=== PATIENT | female | born 1960 | race Caucasian/White ===

== ENCOUNTER 2016-11-24 09:38 | Emergency (ER) | payer BC, OTHER ==
[2016-11-24 09:46] VITALS: BP 156/87; PULSE 81; RESP 18; TEMP 98.2
[2016-11-24] MEDS ORDERED: DIPH,PERTUS(ACELL)TETVAC-LF 0.5 ML VIAL IM ONE (10:39)
--- NOTE | 2016-11-24 10:40 | ED ---
General Adult HPI - General Chief complaint: Wound/Laceration Stated complaint: LACERATION LEFT INDEX FINGER Time Seen by Provider: 11/24/16 10:06 Source: patient, family, RN notes reviewed Mode of arrival: ambulatory Limitations: no limitations - History of Present Illness Initial comments: 56-year-old female presenting for left hand laceration. Patient states she was grabbing a picture frame that was old and got cut on a piece of glass on the corner of the frame. She states it was a puncture wound to the meaty area between her thumb and first digit on the left hand. She is right handed. She states she has had some persistent bleeding. This occurred about an hour ago. She does not know when her last tetanus shot was. She denies any other injury. She denies any broken glass or foreign body. - Related Data Home Medications Medication Instructions Recorded Confirmed ALPRAZolam [Alprazolam] 0.25 mg PO BID PRN 11/24/16 11/24/16 Aspirin 81 mg PO DAILY 11/24/16 11/24/16 Levothyroxine Sodium [Synthroid] 75 mcg PO DAILY 11/24/16 11/24/16 Pravastatin Sodium [Pravastatin 20 mg PO DAILY 11/24/16 11/24/16 Sodium] Allergies Allergy/AdvReac Type Severity Reaction Status Date / Time Penicillins Allergy Anaphylaxis Verified 11/24/16 10:44 citris fruit Allergy Rash/Hives Uncoded 11/24/16 10:44 Review of Systems ROS Statement: Those systems with pertinent positive or pertinent negative responses have been documented in the HPI. ROS Other: All systems not noted in ROS Statement are negative. Past Medical History Past Medical History: Thyroid Disorder Additional Past Medical History / Comment(s): heart murmer, leaky heart valve. History of Any Multi-Drug Resistant Organisms: None Reported Past Surgical History: No Surgical Hx Reported Past Psychological History: No Psychological Hx Reported Smoking Status: Never smoker Past Alcohol Use History: None Reported Past Drug Use History: None Reported General Exam - General Exam Comments Initial Comments: General: Awake and Alert. No acute distress. Does not appear acutely ill. Eyes: JORDAN. No scleral icterus. HENT: Atraumatic, normocephalic. Mucous membranes moist. Trachea midline. Neck: The neck is supple, there is no JVD. Cardiovascular: Regular rate and rhythm. Distal pulses intact. Respiratory: No wheezing. No respiratory distress. Normal respiratory rate. Gastrointestinal: No distention. Musculoskeletal: Left hand with full range of motion of all digits passive and active. No evidence of tendon or muscle rupture. No tenderness. Normal ROM. No gross deformity. No strength deficits. Neurological: A&Ox3. There are no obvious motor or sensory deficits. Coordination appears grossly intact. Speech is normal. Skin: Skin is warm and dry. Left hand with 2 cm laceration between the thumb and first digit. No evidence of foreign body. Psychiatric: Cooperative, appropriate mood & affect, normal judgment. Limitations: no limitations Course Vital Signs 11/24/16 09:44 Temperature 98.2 F Pulse Rate 81 Respiratory 18 Rate Blood Pressure 156/87 O2 Sat by Pulse 98 Oximetry Procedures - Laceration Laceration #1 Consent Obtained: verbal consent Time Out Performed: Yes Indication: laceration Site: hand Size (cm): 2 Description: linear (with puncture) Depth: simple, single layer (involving subQ fat) Anesthetic Used: lidocaine 1% Anesthesia Technique: local infiltration Amount (mls): 4 Pre-repair: wound explored, irrigated extensively Type of Sutures: nylon, vicryl Size of Sutures: 4-0 Number of Sutures: 5 (1 figure of eight in underyling fatty tissue for wound approximation) Technique: simple, interrupted Patient Tolerated Procedure: well, no complications Medical Decision Making - Medical Decision Making 56-year-old female presenting for left hand laceration. There does not appear to be any foreign body on exam. 2 cm laceration with puncture into the underlying fatty tissue. There does not appear to be any tendon damage or weakness associated. Fingers neurovascularly intact. Laceration was repaired after local anesthetic. Patient tolerated this well. Discussed wound care. Tetanus is updated today. Sutures out in one week. Discussed follow-up with PCP or return to the [facility] for removal of sutures. Discussed concerning signs symptoms for immediate return to the ED. Patient is agreeable with plan and discharge home. Disposition Clinical Impression: Laceration of left hand Disposition: HOME SELF-CARE Condition: Stable Instructions: Laceration (ED) Additional Instructions: Please follow up in 1 week to have stitches removed. Referrals: Yelitza English MD [Primary Care Provider] - 1-2 days Time of Disposition: 10:47
== END 2016-11-24 11:13 | disposition home or self-care (01) ==
LOC: EC 09:38
DX: S61.412A Laceration without foreign body of left hand, initial encounter (principal); E07.9 Disorder of thyroid, unspecified; Z23 Encounter for immunization; Z79.82 Long term (current) use of aspirin; Z79.899 Other long term (current) drug therapy; Z88.0 Allergy status to penicillin; Z91.018 Allergy to other foods; W25.XXXA Contact with sharp glass, initial encounter; Y93.89 Activity, other specified
CPT/HCPCS: 12001; 90471; 90715; 99282

== ENCOUNTER → 2018-02-28 | Outpatient (CLI) | payer MEDICAID ==
--- NOTE | 2018-02-28 14:44 | XR ---
EXAMINATION TYPE: XR chest 2V DATE OF EXAM: 02/28/2018 COMPARISON: 12/22/2010 HISTORY: Cough since November TECHNIQUE: Frontal and lateral views of the chest are obtained. FINDINGS: There is no focal air space opacity, pleural effusion, or pneumothorax seen. The cardiac silhouette size is within normal limits. The osseous structures are intact. Cholecystectomy clips a re seen within the right upper quadrant. Mild multilevel degenerative changes of the thoracic spine a nd acromioclavicular joints are noted. IMPRESSION: No acute cardiopulmonary process.
== END | disposition home or self-care (01) ==
LOC: RADXRMAIN 10:42
PROVIDERS: ATTEND Internal Medicine
DX: R05 Cough (principal)
CPT/HCPCS: 71046

== ENCOUNTER → 2018-03-27 | Outpatient (CLI) | payer MEDICAID, OTHER ==
--- NOTE | 2018-03-28 13:57 | MM ---
Reason for exam: screening (asymptomatic). Last mammogram was performed 2 years and 1 month ago. History: Patient is postmenopausal. Took estrogen for 10 years beginning at age 41. Physical Findings: A clinical breast exam by your physician is recommended on an annual basis and results should be correlated with mammographic findings. MG 3D Screening Mammo W/Cad Bilateral CC and MLO view(s) were taken. Prior study comparison: March 10, 2016, bilateral MG screening mammo w CAD. January 31, 2015, bilateral MG screening mammo w CAD. There are scattered fibroglandular densities. No significant changes when compared with prior studies. ASSESSMENT: Negative, BI-RAD 1 RECOMMENDATION: Routine screening mammogram of both breasts in 1 year.
== END | disposition home or self-care (01) ==
LOC: RADMAMWWP 14:02
PROVIDERS: ATTEND Internal Medicine
DX: Z12.31 Encounter for screening mammogram for malignant neoplasm of breast (principal)
CPT/HCPCS: 77063; 77067

== ENCOUNTER → 2018-04-14 | Outpatient (CLI) | payer MEDICAID ==
--- NOTE | 2018-04-14 11:54 | ECHOF ---
Referral Reason:Aortic Valve Disorder I35.8 MEASUREMENTS -------- HEIGHT: 167.6 cm WEIGHT: 87.5 kg BP: RVIDd: 2.9 cm (< 3.3) IVSd: 1.6 cm (0.6 - 1.1) LVIDd: 3.6 cm (3.9 - 5.3) LVPWd: 1.3 cm (0.6 - 1.1) IVSs: 1.8 cm LVIDs: 2.3 cm LVPWs: 1.7 cm LAESV Index (A-L): 17.91 ml/m Ao Diam: 2.5 cm (2.0 - 3.7) AV Cusp: 1.6 cm (1.5 - 2.6) LA Diam: 3.2 cm (2.7 - 3.8) EPSS: 0.3 cm MV E Scot: 0.87 m/s MV DecT: 145 ms MV A Scot: 0.59 m/s MV E/A Ratio: 1.49 AV maxP.67 mmHg AV meanP.80 mmHg AR PHT: 400 ms RAP: 5.00 mmHg RVSP: 29.34 mmHg MV EF SLOPE: 58.43 mm/s (70 - 150) MV EXCURSION: 1.30 cm (> 18.000) FINDINGS -------- Sinus rhythm. This was a technically good study. There is moderate concentric left ventricular hypertrophy. Overall left ventricular systolic functi on is normal with, an EF between 55 - 60 %. The right ventricle is normal in size and function. Normal LA size by volume 22+/-6 ml/m2. The right atrium is normal in size. Aortic valve is trileaflet and is mildly thickened. There is mild aortic regurgitation. There is mild aortic stenosis present. Peak/mean gradient across the Aortic Valve is 18.67mmHg / 10.80mmHg. The mitral valve leaflets are mildly thickened. Moderate mitral regurgitation is present. Mild tricuspid regurgitation present. The right ventricular systolic pressure, as measured by Doppl er, is 29.34mmHg. Moderate pulmonic regurgitation. The aortic root size is normal. Normal inferior vena cava with normal inspiratory collapse consistent with estimated right atrial pre ssure of 5 mmHg. The pericardium is normal. CONCLUSIONS -------- 1. Sinus rhythm. 2. This was a technically good study. 3. There is moderate concentric left ventricular hypertrophy. 4. Overall left ventricular systolic function is normal with, an EF between 55 - 60 %. 5. The right ventricle is normal in size and function. 6. Normal LA size by volume 22+/-6 ml/m2. 7. The right atrium is normal in size. 8. Aortic valve is trileaflet and is mildly thickened. 9. There is mild aortic regurgitation. 10. There is mild aortic stenosis present. 11. Peak/mean gradient across the Aortic Valve is 18.67mmHg / 10.80mmHg. 12. The mitral valve leaflets are mildly thickened. 13. Moderate mitral regurgitation is present. 14. Mild tricuspid regurgitation present. 15. The right ventricular systolic pressure, as measured by Doppler, is 29.34mmHg. 16. Moderate pulmonic regurgitation. 17. The aortic root size is normal. 18. Normal inferior vena cava with normal inspiratory collapse consistent with estimated right atrial pressure of 5 mmHg. 19. The pericardium is normal. TRUST MAIL CLERK: Mayuri Brooks RDCS
== END | disposition home or self-care (01) ==
LOC: RADECHMAIN 08:34
PROVIDERS: ATTEND Internal Medicine Interventional Cardiology
DX: I08.3 Combined rheumatic disorders of mitral, aortic and tricuspid valves (principal)
CPT/HCPCS: 93306

== ENCOUNTER → 2019-05-07 | Outpatient (CLI) | payer MEDICAID ==
--- NOTE | 2019-05-09 10:24 | MM ---
Reason for exam: screening (asymptomatic). Last mammogram was performed 1 year and 1 month ago. History: Patient is postmenopausal. Took estrogen for 10 years beginning at age 41. Physical Findings: A clinical breast exam by your physician is recommended on an annual basis and results should be correlated with mammographic findings. MG 3D Screening Mammo W/Cad Bilateral CC and MLO view(s) were taken. Prior study comparison: March 27, 2018, bilateral MG 3d screening mammo w/cad. March 10, 2016, bilateral MG screening mammo w CAD. There are scattered fibroglandular densities. No significant changes when compared with prior studies. ASSESSMENT: Benign, BI-RAD 2 RECOMMENDATION: Routine screening mammogram of both breasts in 1 year.
== END | disposition home or self-care (01) ==
LOC: RADMAMWWP 13:50
PROVIDERS: ATTEND Internal Medicine
DX: Z12.31 Encounter for screening mammogram for malignant neoplasm of breast (principal)
CPT/HCPCS: 77063; 77067

== ENCOUNTER → 2019-07-25 | Outpatient (CLI) | payer MEDICAID ==
--- NOTE | 2019-07-25 11:20 | MR ---
EXAMINATION TYPE: MR lumbar spine wo con DATE OF EXAM: 07/25/2019 COMPARISON: None HISTORY: Leg cramp TECHNIQUE: Multiplanar, multisequence images of the lumbar spine were acquired. T12-L1 shows bilateral extension of T2 bright focus posterior to the thecal sac into the foramina. L1-L2: Normal disc appearance without desiccation. No herniation, protrusion or disc bulging. No ca nal stenosis is present. Foramina are patent bilaterally. L2-L3: Normal disc appearance without desiccation. The T2 bright focus posterior to the thecal sac ca uses posterior mass effect and extends towards the right neural foramen at L1-2. No herniation, protr usion or disc bulging. No canal stenosis is present. Foramina are patent bilaterally. L3-L4: There is some facet arthropathy with hypertrophy ligamentum flavum causing posterior lateral m ass effect on the thecal sac. No evident disc herniation or central stenosis, neural foraminal encroa chment. L4-L5: There is facet arthropathy with hypertrophy ligamentum flavum causing posterior lateral mass e ffect on the thecal sac. This causes a trefoil appearance of the thecal sac, there is no evident disc herniation. Listhesis contributes cause foraminal encroachment right greater than left. No definite spondylolysis. Only mild central stenosis. L5-S1: Minimal posterior disc bulge may contact the anterior thecal sac, proximal S1 nerve roots. The re is some mild facet arthropathy change. No significant spinal stenosis or foraminal encroachment. Lumbar segments are intact. There is an oval focus of cerebral spinal fluid signal intensity suspect ed posterior to the conus and proximal nerve roots extending from T12 to L2 measuring approximately 5 .7 cm in cephalad to caudal dimension by 8 mm in anterior posterior dimension by 2.6 cm in transverse dimension in an epidural location causing mass effect on the thecal sac. No paraspinal masses are id entified. Conus medullaris has a normal appearance. Mild anterolisthesis grade 1 L4-5. Loss of disc height signal L4-5 greater than L5-S1 compatible disc desiccation and degenerative disc disease. Spon dylosis is present at multiple levels with endplate discogenic marrow signal change. Increased signal at the posterior aspect of the disc at L5-S1 may represent annular tear. There is a spinal curvature . IMPRESSION: Findings suggest arachnoid cyst posterior to the thecal sac as described. Degenerative disc disease, facet arthropathy, spinal listhesis, foraminal encroachment as described. Additional findings above.
== END | disposition home or self-care (01) ==
LOC: RADMRIMAIN 09:25
PROVIDERS: ATTEND Psychiatry & Neurology Neurology
DX: M51.36 Other intervertebral disc degeneration, lumbar region (principal); M43.16 Spondylolisthesis, lumbar region; M46.96 Unspecified inflammatory spondylopathy, lumbar region
CPT/HCPCS: 72148

== ENCOUNTER → 2019-09-03 | Outpatient (CLI) | payer MEDICAID ==
--- NOTE | 2019-09-03 07:40 | MR ---
EXAMINATION TYPE: MR cspine/tspine wo con DATE OF EXAM: 09/03/2019 COMPARISON: NONE HISTORY: Cervical and thoracic myelopathy per order. Occasional headaches with overactive nerves and muscles affecting the legs for 7 months per patient. TECHNIQUE: Multiplanar, multisequence imaging of cervical and thoracic spine are performed without co ntrast FINDINGS: C-SPINE: Exam slightly suboptimal as there is some motion artifact configuration. FINDINGS: Sagittal images of the cervical spine show the craniocervical junction to appear within nor mal limits. The cervical and upper thoracic spinal cord is normal in course, caliber, and signal. V ertebral alignment is anatomic. The vertebral body height are normal. Mild to moderate disc space na rrowing C6-C7 level with mild to moderate anterior spurring. The bone marrow signal intensity is wit hin normal limits. Axial images show the C2-C3, C3-C4, and C4-C5 levels all 2 appear within normal limits. Axial images at C5-C6 level show a broad based left paracentral disc protrusion effacing the anterola teral thecal sac and causing asymmetric mild left-sided neural foraminal narrowing. Axial images at C6-C7 level showed broad based central disc protrusion effacing the anterior thecal s ac of the ventral surface of spinal cord and causing asymmetric moderate to severe left with mild to moderate right-sided neural foraminal narrowing. Axial images at C7-T1 level are all within normal limits. Thyroid gland smaller atrophic in appearance as is not well-seen, correlate clinically. IMPRESSION: Degenerative change at C5-C6 and worse at C6-C7 levels as detailed above. T-SPINE: Spinal cord shows normal course, caliber, and signal as it courses the thoracic spine. Vertebral bod y heights and alignment are satisfactory. Disc space heights are maintained. No suspicious posterior disc herniations are seen on sagittal images. Mild to moderate multilevel anterior spurring. There is small hemangioma involving the inferior T9 vertebral sagittal image 9. Review of the axial images shows some facet arthropathy lower thoracic levels. Spinal canal grossly p reserved. Bilateral neural foramina are patent. Visualized thorax shows prominent right and left pulm onary arteries. Main pulmonary artery also show significant dilatation. IMPRESSION: [id number] multilevel spurring. Lower thoracic facet arthropathy. No suspicious fo sunday disc herniation. Enlarged pulmonary arteries, underlying pulmonary artery hypertension felt prese nt. Correlate clinically. Pulmonary valve pathology needs to be excluded. Widespread workup of this i s not known finding.
== END | disposition home or self-care (01) ==
LOC: RADMRIMAIN 06:03
PROVIDERS: ATTEND Neurological Surgery
DX: M47.12 Other spondylosis with myelopathy, cervical region (principal); M46.94 Unspecified inflammatory spondylopathy, thoracic region
CPT/HCPCS: 72141; 72146

== ENCOUNTER → 2020-03-03 | Outpatient (CLI) | payer MEDICAID ==
--- NOTE | 2020-03-04 11:03 | ECHOF ---
Referral Reason: MEASUREMENTS -------- HEIGHT: 167.6 cm WEIGHT: 89.8 kg BP: RVIDd: 3.3 cm (< 3.3) IVSd: 1.5 cm (0.6 - 1.1) LVIDd: 3.5 cm (3.9 - 5.3) LVPWd: 1.7 cm (0.6 - 1.1) IVSs: 2.3 cm LVIDs: 2.4 cm LVPWs: 2.0 cm LAESV Index (A-L): 29.37 ml/m Ao Diam: 2.6 cm (2.0 - 3.7) AV Cusp: 1.6 cm (1.5 - 2.6) MV EXCURSION: 17.245 mm (> 18.000) MV EF SLOPE: 86 mm/s (70 - 150) EPSS: 0.4 cm MV E Scot: 1.30 m/s MV DecT: 174 ms MV A Scot: 0.64 m/s MV E/A Ratio: 2.01 AV maxP.20 mmHg AV meanP.80 mmHg AR PHT: 608 ms RAP: 5.00 mmHg RVSP: 45.29 mmHg FINDINGS -------- Sinus rhythm. This was a technically adequate study. The left ventricular size is normal. There is moderate concentric left ventricular hypertrophy. O verall left ventricular systolic function is normal with, an EF between 55 - 60 %. The diastolic fi lling pattern is normal for the age of the patient 16.41. The right ventricle is mildly enlarged. LA is midly dilated 29-33ml/m2. The right atrial size is normal. Interatrial and interventricular septum intact. There is mild aortic regurgitation. There is mild aortic stenosis present. Peak/mean gradient acr oss the Aortic Valve is 25.20mmHg / 12.80mmHg. Mild mitral regurgitation is present. [id number] tricuspid regurgitation present. There is mild to moderate pulmonary hypertension. The right ventricular systolic pressure, as measured by Doppler, is 45.29mmHg. There is no pulmonic regurgitation present. The aortic root size is normal. IVC Not well visulized. There is no pericardial effusion. CONCLUSIONS -------- 1. The left ventricular size is normal. 2. There is moderate concentric left ventricular hypertrophy. 3. Overall left ventricular systolic function is normal with, an EF between 55 - 60 %. 4. The diastolic filling pattern is normal for the age of the patient 16.41 5. The right ventricle is mildly enlarged. 6. LA is midly dilated 29-33ml/m2. 7. There is mild aortic regurgitation. 8. There is mild aortic stenosis present. 9. Peak/mean gradient across the Aortic Valve is 25.20mmHg / 12.80mmHg. 10. Mild mitral regurgitation is present. 11. [id number] tricuspid regurgitation present. 12. There is mild to moderate pulmonary hypertension. 13. The right ventricular systolic pressure, as measured by Doppler, is 45.29mmHg. ADJUNCT ART HISTORY INSTRUCTOR: Daniella Murphy RDCS
== END | disposition home or self-care (01) ==
LOC: RADECHMAIN 12:49
PROVIDERS: ATTEND Internal Medicine Interventional Cardiology
DX: I08.3 Combined rheumatic disorders of mitral, aortic and tricuspid valves (principal); I27.20 Pulmonary hypertension, unspecified
CPT/HCPCS: 93306

== ENCOUNTER → 2020-04-17 | Outpatient (CLI) | payer MEDICAID ==
--- NOTE | 2020-04-17 10:38 | MR ---
EXAMINATION TYPE: MR brain wo con DATE OF EXAM: 04/17/2020 COMPARISON: NONE HISTORY: Bilateral lower extremity spasticity, periodic leg movements TECHNIQUE: T1-weighted sagittal, T2, FLAIR, and diffusion axial, and T2 coronal coronal views of the brain are submitted. FINDINGS: There is no evidence of acute ischemia. The ventricles, basal cisterns, and sulci overlying the conv exities are consistent with the patient's age. There is no mass effect. Craniocervical junction maintained. Sella turcica has a normal appearance. Changes of chronic sinusit is. There is ectasia of the vertebral basilar system. There is nodular prominence of the basilar tip david uring 3 mm. Small aneurysm in the differential diagnosis. Recommend MRA of the [place]. IMPRESSION: 1. Nodular prominence of the basilar tip. Small aneurysm not excluded recommend MRA [place] to exclude aneurysm.
== END | disposition home or self-care (01) ==
LOC: RADMRIMAIN 09:27
PROVIDERS: ATTEND Psychiatry & Neurology Neurology
DX: I67.89 Other cerebrovascular disease (principal)
CPT/HCPCS: 70551

== ENCOUNTER → 2020-10-02 | Outpatient (CLI) | payer MEDICAID ==
--- NOTE | 2020-10-02 15:45 | CONS ---
CONSULTATION DATE OF SERVICE: 10/02/2020 This is a 60-year-old lady who has [facility] for her sleep problems, including snoring, restless leg symptoms and probably periodic limb movements. HISTORY OF PRESENT ILLNESS/SLEEP-WAKE EVALUATION: Patient's usual sleep schedule is from 11 p.m. or 12 midnight until 6 or 8 a.m. during the weekdays, and on weekends it is different, but she wakes up also around 8 a.m. in the morning. Sometimes she has problems with falling asleep related to her symptoms of restless legs. With usage of gabapentin her restless leg symptoms improved. She snores and she wakes up with nocturia. She has jerking movements, kicking at night. During the day she usually does not take any naps. She drinks up to 5 caffeinated beverages during the day. [place] Sleepiness Scale is 5. PAST MEDICAL HISTORY: Positive for hypertension, hypothyroidism, hyperlipidemia, some heart problems. PAST SURGICAL HISTORY: C-sections x2, partial hysterectomy, ovariectomy, cholecystectomy, hernia repair. MEDICATIONS: Synthroid, losartan, hydrochlorothiazide, gabapentin, baby aspirin. SOCIAL HISTORY: Negative for smoking. Alcohol consumption occasional. FAMILY HISTORY: Sleep apnea in her father, cancer. REVIEW OF SYSTEMS: Restless leg symptoms, significant amount of kicking and movements at night. PHYSICAL EXAMINATION: GENERAL: A pleasant lady without distress. VITAL SIGNS: BP 120/79, HR 82, RR 15, height 5 feet 4-1/2 inches, weight 203.4 pounds, body mass index 34.8, temperature 97.8, oxygen saturation at room air 97%. HEENT: PERRLA, EOMI. Evaluation of oropharynx showed tongue protrudes midline. Moderately low position of soft palate. Mallampati III. Soft distance between soft palate and posterior pharyngeal wall. NECK: Supple. No JVD. Thyroid is not palpable. Wide neck; 16-1/2 inches in circumference. LUNGS: Clear to percussion and to auscultation. Good air exchange. No wheezing or rhonchi. HEART: S1, S2 regular. No murmurs, gallops or rubs. ABDOMEN: Obese. EXTREMITIES: No clubbing or cyanosis. PERSONAL INJURY LAW SPECIALIST: Awake, alert, and oriented X3. Cranial nerves 2 to 7 intact. There is no fasciculation or atrophy. noted. No focal deficits observed. IMPRESSION: 1. Snoring, awakenings from sleep with nocturia, moderately low position of soft palate, wide neck; possible obstructive sleep apnea-hypopnea syndrome. 2. Restless legs syndrome for many years. 3. Kicking and jerking movements during sleep, possibly periodic limb movements. 4. Hypertension. 5. Obesity. Body mass index 34.8. 6. Hypothyroidism. 7. Status post C-sections x2. 8. Status post hysterectomy and ovariectomy. 9. Status post cholecystectomy and hernia repair in 2010. PLAN: 1. Polysomnography for evaluation of patient's breathing during sleep. 2. CPAP/BiPAP titration if sleep study confirms obstructive sleep apnea-hypopnea syndrome. 3. Preferable position during sleep on the side. 4. No driving if patient feels any sleepiness. 5. I will see patient for follow up visit to explain results of testing and following plan. Thank you very much for referring this patient for consultation. Sincerely, Tj Weber MD, PhD, FAASM Diplomat of [employer] [employer] [employer] [facility] [place] MMODL / IJN: [id number] /
== END | disposition home or self-care (01) ==
LOC: SLEEP 11:31
PROVIDERS: ATTEND Internal Medicine
DX: R06.83 Snoring (principal); I10 Essential (primary) hypertension; E03.9 Hypothyroidism, unspecified; E66.9 Obesity, unspecified; G25.81 Restless legs syndrome; Z68.34 Body mass index [BMI] 34.0-34.9, adult; Z90.49 Acquired absence of other specified parts of digestive tract; Z90.710 Acquired absence of both cervix and uterus; Z79.82 Long term (current) use of aspirin; Z79.899 Other long term (current) drug therapy
CPT/HCPCS: 99211

== ENCOUNTER 2020-12-03 07:21 | Day surgery (SDC) | payer MEDICAID ==
[2020-11-28 15:07] VITALS: BMI 33.3
[~2020-12-03 07:21] MED LIST: ALPRAZolam 0.25 MG TAB PO PRN; ALPRAZolam 0.5 MG TAB PO PRN; ASPIRIN 325 MG TAB PO STA; ATORVASTATIN 80 MG TAB PO STA; NITROGLYCERIN SL TABS 0.4 MG TAB SUBLINGUAL PRN; SODIUM CHLORIDE 0.9% 1,000 ML in EMPTY BAG 1 BAG IV ONE
[2020-12-03 07:44] VITALS: TEMP 98.1
[2020-12-03] MEDS ORDERED: fentaNYL (PF) 50 MCG/ML 2 ML AMP ONE (08:42)
[2020-12-03] MEDS: BENZOCAINE SPRAY 1 CAN MUCOUS MEM ONE ×2 (09:13→09:39)
[2020-12-03] MEDS ORDERED: fentaNYL (PF) 50 MCG/ML 2 ML AMP IV ONE (09:40)
[2020-12-03] MEDS ORDERED: MIDAZOLAM 2 MG/2 ML VIAL IV ONE ×2 (09:41→09:43)
[2020-12-03] MEDS ORDERED: LIDOCAINE 1% INJ 10MG/ML (20 ML MDV) ONE (10:02)
[2020-12-03] MEDS ORDERED: VERAPAMIL 2.5 MG/ML 2 ML AMP ONE (10:02)
[2020-12-03] MEDS ORDERED: LIDOCAINE 1% INJ 10MG/ML (20 ML MDV) SQ ONE (10:25)
[2020-12-03] MEDS ORDERED: VERAPAMIL SYRINGE (5 MG/10 ML) INTRAARTER ONE (10:26)
[2020-12-03] MEDS ORDERED: IOPAMIDOL-370 100ML BTL INJ ONE (10:47)
[2020-12-03] MEDS ORDERED: IOPAMIDOL-370 125ML BTL INJ ONE (10:47)
[2020-12-03] MEDS ORDERED: SODIUM CHLORIDE 0.9% 1,000 ML IV SCH (11:00)
[2020-12-03] MEDS ORDERED: RX INFO: IV CONTRAST WAS GIVEN 1 EACH MISC MISCELLANE PRN (11:00)
[2020-12-03 11:16] VITALS: RESP 16
--- NOTE | 2020-12-03 11:24 | CC ---
CARDIAC CATHETERIZATION REPORT INDICATION: Evaluation of the aortic valve and abnormal stress test. The patient is a 60-year-old female with known history of hypertension, hyperlipidemia, who has been complaining of episode of chest discomfort and progressive dyspnea. She has a known history of moderate severe aortic regurgitation. She had an abnormal myocardial perfusion imaging. In view of that, recommendation was made regarding cardiac catheterization. The procedure as well as the risks and the complications were discussed with the patient who is in full understanding and agreement. PROCEDURE: Patient was brought to the tender labor in a fasting semi-sedated state after receiving fentanyl and Benadryl and achieving moderate conscious sedated state. Using Xylocaine anesthesia and Seldinger technique, a 6-Estonian sheath was introduced in the right radial artery. Selective right and left coronary angiography performed using 5-Estonian 3.5 bend right and left Abdullahi catheter. Multiple views of the coronary artery including hemiaxial views were obtained. Following that, the 5-Estonian tight pigtail catheter was introduced in the left ventricle and a 30-degree STRANGE view of the left ventricle was obtained. Following that, an URUGUAYAN view of the ascending aorta was performed. Following that, catheter and sheath were removed. Hemostasis was obtained with deployment of a TR band. There was no immediate complication. Patient was returned to her room in stable condition. Of note, the patient received 5000 units of intravenous heparin as well as intra-arterial verapamil. There was no immediate complication. FINDINGS: LEFT MAIN: This is a large-sized vessel, bifurcating into left circumflex, left anterior descending artery. Left main coronary artery has no evidence of high-grade stenosis. LEFT ANTERIOR DESCENDING ARTERY: This is a large-sized vessel reaching to the apex with a wraparound apex segment giving rise to small diagonal branch. The left anterior descending artery as well as branches have no evidence of obstructive coronary artery disease. LEFT CIRCUMFLEX: This is a nondominant vessel giving rise to 3 obtuse marginal branches. The second and third one are largest in caliber. The left circumflex as well as branches have no evidence of obstructive coronary artery disease. RIGHT CORONARY ARTERY: This is a large dominant vessel bifurcating PDA and posterolateral segment and branches. The right coronary artery and its branches have no evidence of obstructive coronary artery disease. LEFT VENTRICULOGRAM: Left ventriculogram was performed in 30-degree STRANGE view and revealed normal left ventricular size and systolic function. There was 2+ mitral regurgitation. Ejection fraction is about 60%. AORTOGRAM: Aortogram was performed in the URUGUAYAN view and revealed a tricuspid aortic valve with a 3+ aortic regurgitation. HEMODYNAMICS: There was no gradient across the aortic valve. The left ventricular end-diastolic pressure was 14-16 mmHg. CONCLUSION: 1. Normal coronary arteries. 2. Normal left ventricular size and systolic function with 2+ mitral regurgitation. 3. A 3+ aortic regurgitation with a tricuspid aortic valve. RECOMMENDATION: In view of finding anatomy, I recommend continue medical therapy with aggressive coronary risk modifications being initiated. Those findings and recommendations were discussed with the patient and her family and they are in full understanding and agreement. Duration of sedation 26 minutes. MMODL / IJN: [id number] /
--- NOTE | 2020-12-03 11:24 | LTR ---
December 03, 2020 Re: Ricrada Marsh Dear Dr. English: I had the opportunity to perform cardiac catheterization on Mrs. Marsh at [facility] on the 03 of December and a full copy of the procedure note will be forwarded to you. In brief, she was found to have no evidence of obstructive coronary artery disease with 3+ aortic regurgitation and 2+ mitral regurgitation with preserved systolic function. Based on those findings, I recommend continue clinical observation on the present medical regimen and depending on her progress further recommendation will be made. Thank you again for allowing me the opportunity to participate in her care. Please feel free to call for any questions. Sincerely yours, MD JAILYN SimmsL / AILYNN: [phone] /
[2020-12-03 12:21] VITALS: BP 121/82; PULSE 80
--- NOTE | 2020-12-03 15:30 | ECHOT ---
TRANSESOPHAGEAL ECHOCARDIOGRAM INDICATION: Evaluation of aortic valve. PROCEDURE: After explaining the procedure to the patient, its risks and the complications, blood pressure, heart rate, O2 saturation were monitored. The throat was sprayed with Cetacaine. She received 3 mg intravenous Versed, 50 mcg intravenous fentanyl. The probe was introduced in the esophagus without difficulty. Images were obtained. Following that, the probe was removed. There was no immediate complication. FINDINGS: Left atrial size is normal. Left atrial appendage is normal. Left ventricular size and systolic function normal. The aortic valve is a tricuspid valve with thickening and preserved opening. Mitral valve appears to be normal. Tricuspid valve is normal. Descending thoracic aorta appears to be normal. No pericardial effusion was noted. Contrast bubble study revealed no evidence of shunting across the interatrial septum with Valsalva maneuver. Doppler pulse wave and color Doppler obtained and revealed moderate to severe aortic with moderate mitral and mild to moderate tricuspid regurgitation. There was no shunting by color Doppler study. CONCLUSION: 1. Normal left ventricular size and systolic function. 2. Tricuspid aortic valve with thickening of the cusps with moderate to severe aortic regurgitation. 3. Moderate mitral regurgitation. 4. Mild to moderate tricuspid regurgitation. 5. Normal appearance of descending thoracic aorta. 6. No shunting across the interatrial septum. MMODL / IJN: [id number] /
[2020-12-03] MEDS ORDERED: GABAPENTIN 300 MG CAP PO SCH (16:00)
[2020-12-04] MEDS ORDERED: LEVOTHYROXINE 100 MCG TAB PO SCH (06:30)
[2020-12-04] MEDS ORDERED: ASPIRIN 81 MG PO SCH (09:00)
[2020-12-04] MEDS ORDERED: POTASSIUM CHLORIDE ER 10 MEQ TAB.ER.PRT PO SCH (09:00)
[2020-12-04] MEDS ORDERED: PRAVASTATIN SODIUM 20 MG TAB PO SCH (09:00)
[2020-12-04] MEDS ORDERED: CHOLECALCIFEROL 25 MCG (1000 IU) TABLET PO SCH (09:00)
[2020-12-04] MEDS ORDERED: LOSARTAN 50 MG TAB PO SCH (09:00)
== END 2020-12-03 13:47 | disposition home or self-care (01) ==
LOC: CATHCVL 07:21
PROVIDERS: ATTEND Internal Medicine Interventional Cardiology
DX: I08.3 Combined rheumatic disorders of mitral, aortic and tricuspid valves (principal); R94.39 Abnormal result of other cardiovascular function study; I10 Essential (primary) hypertension; E78.2 Mixed hyperlipidemia; E03.9 Hypothyroidism, unspecified; Z20.822 Contact with and (suspected) exposure to COVID-19; Z87.891 Personal history of nicotine dependence; Z90.710 Acquired absence of both cervix and uterus; Z98.891 History of uterine scar from previous surgery; Z90.89 Acquired absence of other organs; Z79.82 Long term (current) use of aspirin; Z79.890 Hormone replacement therapy; Z79.899 Other long term (current) drug therapy; Z88.0 Allergy status to penicillin; Z88.8 Allergy status to other drugs, medicaments and biological substances
CPT/HCPCS: 93312; 93320; 93325; 93458; 93567; 87635; C1769; C1894; J2250; J2001; J3010; J1644; Q9967 ×2

== ENCOUNTER → 2020-12-22 | Outpatient (CLI) | payer MEDICAID ==
--- NOTE | 2020-12-23 11:02 | MM ---
Reason for exam: screening (asymptomatic). Last mammogram was performed 1 year and 8 months ago. History: Patient is postmenopausal. Took estrogen for 10 years beginning at age 41. Physical Findings: A clinical breast exam by your physician is recommended on an annual basis and results should be correlated with mammographic findings. MG 3D Screening Mammo W/Cad Bilateral CC and MLO view(s) were taken. Prior study comparison: May 07, 2019, bilateral MG 3d screening mammo w/cad. March 27, 2018, bilateral MG 3d screening mammo w/cad. There are scattered fibroglandular densities. There is no discrete abnormality. ASSESSMENT: Negative, BI-RAD 1 RECOMMENDATION: Routine screening mammogram of both breasts in 1 year.
== END | disposition home or self-care (01) ==
LOC: RADMAMWWP 16:20
PROVIDERS: ATTEND Internal Medicine
DX: Z12.31 Encounter for screening mammogram for malignant neoplasm of breast (principal); Z78.0 Asymptomatic menopausal state
CPT/HCPCS: 77063; 77067

== ENCOUNTER → 2021-04-16 | Outpatient (CLI) | payer MEDICAID | END | disposition home or self-care (01) | LOC: LABPAT 13:29 | PROVIDERS: ATTEND Orthopaedic Surgery | DX: Z01.812 Encounter for preprocedural laboratory examination (principal); M17.11 Unilateral primary osteoarthritis, right knee; Z22.322 Carrier or suspected carrier of Methicillin resistant Staphylococcus aureus | CPT/HCPCS: 87070 ==

== ENCOUNTER 2021-04-28 08:43 | Day surgery (SDC) | payer MEDICAID ==
[2021-04-21 16:04] VITALS: BMI 33.3
--- NOTE | 2021-04-27 12:34 | HP ---
HISTORY AND PHYSICAL CHIEF COMPLAINT: Right knee pain. HISTORY OF PRESENT ILLNESS: The patient is a 60-year-old female who presents with right knee pain that has progressed over the past several years. It has worsened recently. She notes medial pain with locking. She has a difficult time with weightbearing activities. She also has night symptoms. She has been limping. She has tried previous medications in addition to injection and attempted weight loss without much relief of her symptoms. PAST MEDICAL HISTORY: Significant for arthritis, hypothyroidism, and heart murmur. PAST SURGICAL HISTORY: Significant for appendectomy, , cholecystectomy, and hysterectomy. FAMILY HISTORY: Significant cancer. SOCIAL HISTORY: Negative for current tobacco or alcohol use. REVIEW OF SYSTEMS: Sixteen-point review of systems otherwise reviewed and is noncontributory. CURRENT MEDICATIONS: Aspirin, gabapentin, Lasix, losartan, Synthroid. ALLERGIES: SHE HAS ALLERGIES TO PENICILLIN AND SENSITIVITIES TO PREDNISONE. PHYSICAL EXAMINATION: On examination, patient is approximately 5 foot 6, 200 pounds of endomorphic habitus. HEENT exam is nonfocal. NECK is supple. She has painless passive motion of the right hip. Active motion right knee -10 to 105 degrees of flexion. She is tender about the medial joint line. She has a large effusion. Collaterals stable, Troy is negative, Eladia's is equivocal. She has genu varum alignment. Her distal neurovascular exam appears intact in the right lower extremity. Weightbearing, notch, lateral and Merchant views of the right knee obtained in the office show severe medial compartment narrowing with [id number] changes and subchondral sclerosis. IMPRESSION: Right knee severe medial compartment osteoarthrosis. RECOMMENDATIONS: I talked to the patient at length regarding her condition along with treatment options. At this point, she is quite limited because of pain related to her osteoarthrosis despite previous conservative measures. After thorough discussion, she opts to proceed with surgery. We will plan to proceed with right total knee arthroplasty. We will institute DVT prophylaxis postoperatively. MMODL / IJN: [id number] /
[~2021-04-28 08:43] MED LIST changes: +ACETAMINOPHEN TAB 500 MG TAB PO PRN; -ALPRAZolam 0.25 MG TAB PO PRN; -ALPRAZolam 0.5 MG TAB PO PRN; -ASPIRIN 325 MG TAB PO STA; -ATORVASTATIN 80 MG TAB PO STA; +HYDROmorphone 0.5 MG/0.5 ML SYRINGE IVP PRN; +LIDOCAINE 1% (10MG/ML) FOR IV START INTRADERMA PRN; +MELOXICAM 7.5 MG TAB PO PRN; -NITROGLYCERIN SL TABS 0.4 MG TAB SUBLINGUAL PRN; +ONDANSETRON 4 MG/2 ML VIAL IVP ONE; +ROPIVACAINE/EPI/CLONIDINE/KET 50 ML SYRINGE MISCELLANE PRN; -SODIUM CHLORIDE 0.9% 1,000 ML in EMPTY BAG 1 BAG IV ONE; +TRANEXAMIC ACID 1,000 MG in SODIUM CHLORIDE 0.9% 100 ML IVPB PRN; +VANCOMYCIN 1,500 MG in SODIUM CHLORIDE 0.9% 250 ML IVPB PRN
[2021-04-28] MEDS: LACTATED RINGERS 1,000 ML IV SCH (09:31)
[2021-04-28] MEDS ORDERED: fentaNYL (PF) 50 MCG/ML 2 ML AMP IV ONE (09:44)
[2021-04-28] MEDS ORDERED: MIDAZOLAM 2 MG/2 ML VIAL IV ONE (09:44)
--- NOTE | 2021-04-28 10:20 | P.ANPRN ---
Procedure Note - Anesthesia - Nerve Block Performed Right Adductor Canal Infusion Time Out Performed: Yes Date of Procedure: 04/28/21 Procedure Start Time: 09:46 Procedure Stop Time: 09:59 Location of Patient: PreOp Indication: Acute Post-Operative Pain, Dx/Pain Location, Requested by Surgeon Specifically requested for management of pain by : Ori Dean Sedation Type: Sedate with meaningful contact maintained Preparation: Sterile Prep, Sterile Dressing Position: Supine Catheter Depth at Skin (cm): 5 Catheter: Indwelling Needle Types: Pajunk Needle Gauge: 21 Ultrasound used to visualize needle placement: Yes Ultrasound used to observe medication spread: Yes Injectate: 0.5% Ropivacaine (see comment for volume) Blood Aspirated: No Pain Paresthesia on Injection Noted: No Resistance on Injection: Normal Image Stored and Saved: Yes Events: Uneventful and Well Tolerated (20cc 0.5% Ropivacaine)
--- NOTE | 2021-04-28 10:21 | P.ANPRN ---
Procedure Note - Anesthesia - Nerve Block Performed Right [place] Single Time Out Performed: Yes Date of Procedure: 04/28/21 Procedure Start Time: 10:00 Procedure Stop Time: 10:05 Location of Patient: PreOp Indication: Acute Post-Operative Pain, Dx/Pain Location, Requested by Surgeon Specifically requested for management of pain by : Ori Dean Sedation Type: Sedate with meaningful contact maintained Preparation: Sterile Prep, Sterile Dressing Position: Supine Catheter: None Needle Types: Facet Needle Gauge: 21 Ultrasound used to visualize needle placement: Yes Ultrasound used to observe medication spread: Yes Injectate: 0.5% Ropivacaine (see comment for volume) Blood Aspirated: No Pain Paresthesia on Injection Noted: No Resistance on Injection: Normal Image Stored and Saved: Yes Events: Uneventful and Well Tolerated (10cc 0.5% Ropivacaine)
[2021-04-28] MEDS ORDERED: PROPOFOL 10 MG/ML 20 ML VIAL IV ONE (10:22)
[2021-04-28] MEDS ORDERED: ePHEDrine SULFATE/0.9% NACL/PF 50 MG/5 ML SYRINGE IV ONE (10:22)
[2021-04-28] MEDS ORDERED: MIDAZOLAM 2 MG/2 ML VIAL ONE (10:22)
[2021-04-28] MEDS ORDERED: PHENYLEPHRINE-0.9% NACL SYG 1,000 MCG/10 ML SYRINGE ONE (10:22)
[2021-04-28] MEDS ORDERED: ROPIVACAINE 5 MG/ML 30 ML VIAL ONE (10:22)
[2021-04-28] MEDS ORDERED: SODIUM CHLORIDE 0.9% 100 ML BAG ONE (10:22)
[2021-04-28] MEDS ORDERED: TRANEXAMIC ACID 1,000 MG/10 ML VIAL ONE (10:22)
[2021-04-28] MEDS ORDERED: CLINDAMYCIN 600 MG in SODIUM CHLORIDE 0.9% 1,000 ML IRRIGATION ONE (10:53)
[2021-04-28] MEDS ORDERED: LACTATED RINGERS 1,000 ML IV ONE (11:49)
[2021-04-28] MEDS ORDERED: HYDROmorphone 0.5 MG/0.5 ML SYRINGE IVP PRN (12:02)
[2021-04-28] MEDS ORDERED: ONDANSETRON 4 MG/2 ML VIAL IVP PRN (12:02)
[2021-04-28] MEDS ORDERED: HYDROmorphone 1 MG/ML 1 ML SYRINGE IVP PRN (12:02)
[2021-04-28] MEDS ORDERED: NALOXONE 0.4 MG/ML 1 ML VIAL IV PRN (12:02)
[2021-04-28] MEDS ORDERED: MAGNESIUM HYDROXIDE 2,400 MG/10 ML CUP PO PRN (12:02)
[2021-04-28] MEDS ORDERED: ACETAMINOPHEN TAB 325 MG TAB PO PRN (12:02)
[2021-04-28] MEDS ORDERED: HYDROcodone/APAP 7.5-325MG 1 EACH TAB PO PRN (12:04)
--- NOTE | 2021-04-28 12:24 | P.OP ---
Date of Procedure: 04/28/21 Preoperative Diagnosis: Right knee severe tricompartmental osteoarthrosis Postoperative Diagnosis: Same Procedure(s) Performed: Right total knee arthroplastycementedcruciate retaining Implants: Depuy Attune size 5 narrow cemented femoral component, size 4 cemented tibial component, 10 mm articular surface, 35 mm cemented patellar component. Anesthesia: regional, spinal Surgeon: Ori Dean Extrusion Die Repair Manager #1: Mat Musa Estimated Blood Loss (ml): 50 Pathology: other (Bone fragments) Condition: stable Disposition: PACU Indications for Procedure: The patient's 60-year-old female presents with progressive right knee pain seco ndary to osteoarthrosis despite previous conservative measures. A discussion of the risks and benefits of operative intervention versus continued conservative measures was made with patient. She proceed with surgery. Operative risks to include infection, neurovascular injury, development of blood clots, fracture, possible component loosening/failure need for subsequent procedures was discussed. Informed consent was obtained. Operative Findings: As below Description of Procedure: The patient was brought to the operating room, and after induction of spinal anesthesia the right lower extremity was prepped and draped in a normal fashion. The tourniquet was inflated to 270 mmHg. A longitudinal incision extending 3 finger breaths above the superior pole of the patella extending to the medial aspect the tibial tubercle was then made. The skin and subcutaneous tissues were divided sharply. Electrocautery was used for hemostasis. A medial parapatellar arthrotomy was then performed. The medial soft tissues to include the superficial and deep portions of the medial collateral ligament as well as the medial hamstring tendons were elevated subperiosteally. The proximal medial tibia osteophytes were carefully removed. The patella was everted. The knee was flexed. A portion of the retropatellar fat pad was excised sharply. The anterior cruciate ligament was sacrificed. A starting hole was made in the distal femur 1 cm anterior to the posterior cruciate origin. An intramedullary femoral guide was gently inserted planning on 5 valgus distal cut with 9 mm distal resection. The cutting block was pinned in place. The distal cut was then made. The posterior referencing sizing guide was utilized. 3 of externa l rotation was built into the system and verified off the trans-epicondylar axis and the posterior condyles. I felt size 5 narrow was most appropriate. The cutting block was pinned in place. The anterior, posterior, and chamfer cuts were then made. The bone fragments were removed. A sulcus cut was then made with the appropriate guide. The trial size 5 femoral component was then placed and was fully seated. There was good anterior to posterior and medial to lateral fit. The distal peg holes were then drilled. The trial component was then removed. Attention was then paid towards preparing the proximal tibia. An extra medullary guide was utilized in line with the tibial shaft and second metatarsal distally. A 7 posterior slope was planned. I planned on 2 mm resection from the medial compartment. The cutting block was pinned in place. The proximal tibial cut was then made. The bone was removed in one fragment. The remnants of the medial and lateral menisci were excised the capsule junction with electrocautery. The tibia sized most appropriately at size 4. The posterior osteophytes off the distal femur were carefully removed with a curved osteotome. The trial tibial and femoral components were placed along with a 10 millimeters articular surface. I was able to obtain full flexion and extension with good stability with varus and valgus stress. After several flexion and extension cycles, the tibial rotation was marked with electrocautery in line with the medial one third of the tibial tubercle. Attention was then paid towards preparing the patella. A patella reamer was utilized taking this down to 14 mm of bone stock. A good flush cut was made. The patella sized most appropriately at 35 millimeters. The peg holes were then drilled. The trial component was placed. The knee was taken through a range of motion. I had good patellofemoral tracking with no hands technique. The trial components were then removed. The tibia was prepared in the appropriate rotation with appropriate drill and keel punch. The flexion and extension gaps were checked and felt to be symmetric. The bony surfaces were prepared with pulsatile lavage and dried. The deep tibial component was then cemented in place and was fully seated. Excess cement was removed. The femoral component was cemented in place and was fully seated. Again excess cement was removed. The trial 10 millimeters surface was then inserted in the knee was put in full extension. The patella component was cemented in place. After the cement had sufficiently hardened, the knee was again taken through a range of motion. Again there was good stability in flexion and extension with varus and valgus stress. The trial articular surface was then removed. The final articular surface was placed and was impacted. Care was taken to avoid any soft tissue interposition. Pulsatile lavage was again utilized. The tourniquet was deflated with approximately 60 minutes total tourniquet time. There was minimal drainage therefore a deep drain was not placed. The medial parapatellar arthrotomy was then closed with #2 Ethibond suture. The subcutaneous tissues were reapproximated interrupted 2- 0 Vicryl sutures. The skin was reapproximated with 3-0 subarticular strata fix suture. Skin tape and adhesive was applied. A sterile dressing was applied. The patient was then awoken from sedation and transferred to recovery room in good condition. Blood loss was estimated at 50 milliliters. No complications were incurred. Sponge and needle counts were correct at the end the case. Mat HENDERSON assisted during the major components this case to include exposure, bone resection, and implantation.
[2021-04-28] MEDS ORDERED: ROPIVACAINE 0.2%-NS ON-Q PUMP 1,090 MG, EMPTY PAIN BALL 1 EACH MISCELLANE PRN (12:30)
--- NOTE | 2021-04-28 13:21 | XR ---
EXAMINATION TYPE: XR knee limited RT DATE OF EXAM: 04/28/2021 COMPARISON: None HISTORY: Postop knee evaluation TECHNIQUE: 2 view right knee FINDINGS: Tibiofemoral components are in place. No acute fracture or dislocation is evident. Postsurg ical soft tissue changes are evident. IMPRESSION: 1. No acute fracture post knee replacement
[2021-04-28] MEDS: GABAPENTIN 300 MG CAP PO SCH ×3 (15:01→20:36)
[2021-04-28] MEDS: HYDROcodone/APAP 7.5-325MG 1 EACH TAB PO PRN (16:34)
[2021-04-28] MEDS ORDERED: SENNOSIDES-DOCUSATE SODIUM 1 EACH TAB PO SCH (21:00)
[2021-04-28] MEDS ORDERED: CYCLOBENZAPRINE 10 MG TAB PO SCH (21:00)
[2021-04-29] MEDS: LACTATED RINGERS 1,000 ML IV SCH (05:20)
[2021-04-29] MEDS: HYDROcodone/APAP 7.5-325MG 1 EACH TAB PO PRN (05:32)
[2021-04-29] MEDS ORDERED: LEVOTHYROXINE 88 MCG TAB PO SCH (06:30)
--- NOTE | 2021-04-29 07:20 | P.PN ---
Progress Note - Text Progress Note Date: 04/29/21 Patient seen and examined at bedside POD 1 s/p right total knee replacement. Patient received spinal for anesthetic and an adductor canal catheter for post operative pain management. Procedure was uneventful. Patient reports pain well controlled with catheter and oral medication. Patient denies COHEN, F/C, N/V. Patient is able to ambulate and has used the bathroom. Site is clean and without erythema. Ok for discharge when medically cleared.
[2021-04-29 07:44] VITALS: BP 139/64; PULSE 54; RESP 18; TEMP 99.4
[2021-04-29] MEDS: GABAPENTIN 300 MG CAP PO SCH ×2 (07:57→12:29)
[2021-04-29] MEDS ORDERED: POTASSIUM CHLORIDE ER 10 MEQ TAB.ER.PRT PO SCH (09:00)
[2021-04-29] MEDS ORDERED: ASPIRIN 81 MG PO SCH (09:00)
[2021-04-29] MEDS ORDERED: RIVAROXABAN 10 MG TAB PO SCH (09:00)
[2021-04-29] MEDS ORDERED: LOSARTAN 50 MG TAB PO SCH (09:00)
[2021-04-29] MEDS ORDERED: CHOLECALCIFEROL 25 MCG (1000 IU) TABLET PO SCH (09:00)
[2021-04-29] MEDS ORDERED: FUROSEMIDE 40 MG TAB PO SCH (09:00)
--- NOTE | 2021-04-29 09:41 | P.PN ---
Subjective Progress Note Date: 04/29/21 Principal diagnosis: Status post right total knee arthroplasty Patient is evaluated today at bedside, she is resting comfortably. Patient is ambulating to the bathroom with assistance multiple times. She is waiting to work physical therapy. Patient is currently controlled. She denies any headaches, lightheadedness, chest pain or shortness of breath. Objective - Vital Signs Vital signs: Vital Signs Temp 99.4 F 04/29/21 07:00 Pulse 54 L 04/29/21 07:00 Resp 18 04/29/21 07:00 BP 139/64 04/29/21 07:00 Pulse Ox 97 04/29/21 07:00 Intake & Output 04/28/21 04/29/21 04/29/21 18:59 06:59 18:59 Intake Total 1751 Output Total 50 Balance 1701 Weight 93 kg Intake: IV 1751 Output: Estimated Blood Loss 50 Other: # Voids 1 1 - Exam Right lower extremity: Incis ion is clean, dry, and intact. The exofin fusion tape is in good condition. There is minimal soft tissue swelling and ecchymosis surrounding the medial and lateral aspects of the incision. Calf is soft, no tenderness with palpation. Plantar flexion, dorsiflexion, EHL, FHL are intact. Sensory exam to light touch throughout the extremity is intact, dorsal pedis pulses 2+. Assessment and Plan Assessment: Postoperative day #1 status post right total knee arthroplasty Plan: Pain control, continue with current oral medication. Plan for discharge home on [place] GI and DVT prophylaxis, utilizing Eliquis 2.5 mg twice a day for 2 weeks after discharge Wound care instructions were discussed, this including showering restrictions Home health care after discharge Encourage incentive spirometer Medical recommendations Discharge planning: Patient does well with physical therapy, plan for discharge home today Time with Patient: Less than 30
[2021-04-29 11:25] LABS: Basophils # (A) 0.04 X 10*3/uL (0.00-0.10); Basophils % (A) 0.4 %; Eosinophils # (A) 0.03 X 10*3/uL (0.04-0.35); Eosinophils % (A) 0.3 %; HCT 32.8 % (37.2-46.3); HGB 10.7 g/dL (12.0-15.0); Lymphocytes # (A) 0.81 X 10*3/uL (0.90-5.00); Lymphocytes % (A) 7.6 %; MCH 29.2 pg (27.0-32.0); MCHC 32.6 g/dL (32.0-37.0); MCV 89.4 fL (80.0-97.0); Mean Platelet Volume 9.4 fL (9.5-12.2); Monocytes # (A) 0.99 X 10*3/uL (0.20-1.00); Monocytes % (A) 9.3 %; Neutrophils # (A) 8.68 X 10*3/uL (1.80-7.70); Neutrophils % (A) 81.5 %; Platelet Count 218 X 10*3/uL (140-440); RBC 3.67 X 10*6/uL (4.10-5.20); WBC 10.65 X 10*3/uL (4.50-10.00)
--- NOTE | 2021-04-29 12:01 | P.DS ---
Providers Date of admission: 04/28/2021 Expected date of discharge: 04/29/21 Attending physician: Ori Dean Consults: 04/28/21 12:02 Consult Physician Routine Consulting Provider: Yelitza English Consult Reason/Comments: medical management Do you want consulting provider notified?: Yes Primary care physician: Yelitza English [facility] Course: Date of admission: 04/28/2021 Date of discharge: 04/29/2021 Admission diagnosis: Status post right total knee arthroplasty Discharge diagnosis: Same Attending physician: Dr. Dean Surgical procedures: Right total knee arthroplasty Brief history: Patient is a 60-year-old female with a history of progressive primary right knee osteoarthritis. At this point patient has failed conservative treatment measures and has opted to proceed with a elective right total knee arthroplasty. Hospital course: Details of patient's surgery can be found in operative report. Patient tolerated the procedure well and was subsequently transported to orthopedic floor. Patient's orthopeidc and medical care was provided daily. Patient had daily laboratory tests performed for evaluation of overall blood counts. Patient had daily physical therapy to include strengthening range of motion as well as education with walker ambulation. Patient was treated with Xarelto for their postoperative DVT prophylaxis during their inpatient stay. Patient was noted to have a relatively uneventful postoperative course. Patient reported satisfactory pain control with oral pain medications by postoperative day 0. Patient showed satisfactory progress with physical therapy. Patient moved steadily through the program and had no difficulty meeting the goals by postoperative day 1. Given patient's otherwise satisfactory course and having met physical therapy goals, plan is to discharge patient home on postoperative day 1. Discharge condition/disposition: Patient will be discharged home in stable condition. Discharge medications: Instructions are given on resumption of patient's normal daily medications per primary care recommendation, in addition patient will be prescribed [place] 7.5 mg/325 mg, Colace 100 mg, Eliquis 2.5 mg. Discharge instructions: 1. Wound care and infection precautions, keep incision dry and covered while showering, no lotions, creams, moisturizers. No soaking, tubs, pools, hottubs. Do not scrub over the incision. 2. Weight-bear as tolerated with walker / cane until follow-up. 3. Ice and elevate when necessary. Do not exceed 20 minutes per hour with ice pack. 4. Utilize compression sleeve until seen at first follow up appointment. 5. Visiting nursing care. 6. Home physical therapy including home CPM. 7. Pain meds and anticoagulants per prescription. 8. Pain medication has potential to cause constipation. Increase oral fluid and fiber intake. Contact primary care provider if you have not had a bowel movement within 48 hours after discharge 9. No anti-inflammatory medication until discussed at first post operative visit, this including Motrin, Aleve, Mobic, Diclofenac. 10. Follow up in office at 2 weeks postop with Salvador Noguera PA-C/Mat Butler 11. Follow up with your primary care doctor 7-10 days after discharge. 12. Contact [facility] with any questions, . Procedures: Right total knee arthroplasty Patient Condition at Discharge: Good Plan - Discharge Summary Discharge Rx Participant: No New Discharge Prescriptions: New Docusate [Colace] 100 mg PO DAILY #30 cap Apixaban [Eliquis] 2.5 mg PO BID #60 tab HYDROcodone/APAP 7.5-325MG [[place] 7.5] 1 - 2 each PO Q6HR PRN #42 tab PRN Reason: Pain No Action Levothyroxine Sodium [Synthroid] 88 mcg PO DAILY Aspirin 81 mg PO DAILY Cholecalciferol [Vitamin D3 (25 Mcg = 1000 Iu)] 50 mcg PO DAILY Losartan [Cozaar] 50 mg PO DAILY Furosemide [Lasix] 40 mg PO DAILY Gabapentin [Neurontin] 300 mg PO QID Potassium Chloride [Potassium Chloride ER] 10 meq PO DAILY Cyclobenzaprine [Flexeril] 10 mg PO HS Discharge Medication List Aspirin 81 mg PO DAILY 11/24/16 [History] Levothyroxine Sodium [Synthroid] 88 mcg PO DAILY 11/24/16 [History] Cholecalciferol [Vitamin D3 (25 Mcg = 1000 Iu)] 50 mcg PO DAILY 11/28/20 [Histor y] Furosemide [Lasix] 40 mg PO DAILY 11/28/20 [History] Gabapentin [Neurontin] 300 mg PO QID 11/28/20 [History] Losartan [Cozaar] 50 mg PO DAILY 11/28/20 [History] Potassium Chloride [Potassium Chloride ER] 10 meq PO DAILY 11/28/20 [History] Cyclobenzaprine [Flexeril] 10 mg PO HS 04/21/21 [History] Apixaban [Eliquis] 2.5 mg PO BID #60 tab 04/29/21 [Rx] Docusate [Colace] 100 mg PO DAILY #30 cap 04/29/21 [Rx] HYDROcodone/APAP 7.5-325MG [[place] 7.5] 1 - 2 each PO Q6HR PRN #42 tab 04/29/21 [Rx] Follow up Appointment(s)/Referral(s): Mat Musa, POLA [PHYSICIAN MAIL ORDER BILLER] - 05/14/21 10:40 am [facility],Equipment [NON-STAFF] - As Needed (Continuous Passive Motion knee machine) [facility], [NON-STAFF] - As Needed Yelitza English MD [Primary Care Provider] - 1 Week Activity/Diet/Wound Care/Special Instructions: Orthopedic Discharge Instructions: 1. Wound care and infection precautions, keep incision dry and covered while showering, no lotions, creams, moisturizers. No soaking, pools, hot tubs. Do not scrub over incision. 2. Weight-bear as tolerated with walker / cane until follow-up. 3. Ice and elevate when necessary. Do not exceed 20 minutes per hour with ice pack. 4. Utilize compression sleeve until seen at first follow up appointment. 5. Pain meds and anticoagulants per prescription. 6. Pain medication has potential to cause constipation. Increase oral fluid and fiber intake. Contact primary care provider if you have not had a bowel movement within 48 hours after discharge. 7. No anti-inflammatory medication until discussed at first post operative visit, this including Motrin, Aleve, Mobic, Diclofenac. 8. Follow up in office at 2 weeks postop with Salvador Noguera PA-C/Mat Musa PA-C 9. Follow up with your primary care doctor 7-10 days after discharge. 10. Contact [facility] with any questions, . Discharge Disposition: HOME WITH HOME HEALTH SERVICES
[2021-04-29 12:37] LABS: African American GFR (CKD) 81.7 (60.0-200.0); Albumin/Globulin Ratio 1.9 (1.60-3.17); Anion Gap 5.7 mmol/L (4.00-12.00); BUN/Creat Ratio 14.44 Ratio (12.00-20.00); Calcium 8.6 mg/dL (8.7-10.3); Carbon Dioxide 28.3 mmol/L (21.6-31.8); Globulin 2.1 g/dL (1.6-3.3); Non-African American GFR(CKD) 70.5 (60.0-200.0); Potassium 4.4 mmol/L (3.5-5.5); Total Bilirubin 0.5 mg/dL (0.3-1.2); Total Protein 6.1 g/dL (6.2-8.2)
--- NOTE | 2021-04-29 12:37 | P.CONS ---
History of Present Illness - Reason for Consult Consult date: 04/29/21 Medical management Requesting physician: Ori Dean - History of Present Illness This is a 60-year-old female patient who presented for an elective right total knee arthroplasty with Dr. Lyn. Patient is currently postop day 1. Patient has a past medical history of hyperlipidemia, hypertension, osteoarthritis and thyroid disorder. Patient also reports that she was recently treated outpatient for urinary tract infection. But there are concerns of ongoing infection. We'll give 1 dose of IV Rocephin urine culture from PCP currently still pending. At this time patient denies any chest pain or shortness of breath. Patient denies nausea vomiting or diarrhea. Patient denies any urinary burning or frequency. Plans for possible DC home today per orthopedic services. Patient maintained on eliquis for DVT prophylaxis. Review of Systems Please refer to HPI otherwise unremarkable Past Medical History Past Medical History: Hyperlipidemia, Hypertension, Osteoarthritis (OA), Thyroid Disorder Additional Past Medical History / Comment(s): heart murmur, leaky heart valve,involuntary muscle movement mere legs, swelling mere legs (rt leg worse),pulmonary stenosis History of Any Multi-Drug Resistant Organisms: None Reported Past Surgical History: Appendectomy, Section, Cholecystectomy, Heart Catheterization, Hysterectomy Past Anesthesia/Blood Transfusion Reactions: No Reported Reaction, Motion Sickness Past Psychological History: Anxiety Smoking Status: Never smoker Past Alcohol Use History: Occasional Past Drug Use History: None Reported - Past Family History Father Family Medical History: Cancer Mother Family Medical History: Cancer Additional Family Medical History / Comment(s): lung cancer Medications and Allergies Home Medications Medication Instructions Recorded Confirmed Type RX: Aspirin 81 mg PO DAILY 11/24/16 04/28/21 History RX: Levothyroxine Sodium 88 mcg PO DAILY 11/24/16 04/28/21 History [Synthroid] RX: Cholecalciferol [Vitamin D3 50 mcg PO DAILY 11/28/20 04/28/21 History (25 Mcg = 1000 Iu)] RX: Furosemide [Lasix] 40 mg PO DAILY 11/28/20 04/28/21 History RX: Gabapentin [Neurontin] 300 mg PO QID 11/28/20 04/28/21 History RX: Losartan [Cozaar] 50 mg PO DAILY 11/28/20 04/28/21 History RX: Potassium Chloride [Potassium 10 meq PO DAILY 11/28/20 04/28/21 History Chloride ER] RX: Cyclobenzaprine [Flexeril] 10 mg PO HS 04/21/21 04/28/21 History Apixaban [Eliquis] 2.5 mg PO BID #60 tab 04/29/21 Rx Docusate [Colace] 100 mg PO DAILY #30 cap 04/29/21 Rx HYDROcodone/APAP 7.5-325MG [[place] 1 - 2 each PO Q6HR PRN #42 tab 04/29/21 Rx 7.5] Allergies Allergy/AdvReac Type Severity Reaction Status Date / Time Penicillins Allergy Anaphylaxis Verified 04/21/21 15:51 prednisone Allergy Anaphylaxis Verified 04/21/21 15:51 citris fruit Allergy Anaphylaxis Uncoded 04/21/21 15:51 Physical Exam Vitals: Vital Signs Temp Pulse Pulse Resp BP Pulse Ox 04/29/21 07:00 99.4 F 54 L 18 139/64 97 04/29/21 01:51 99.5 F 104 H 16 123/75 93 L 04/28/21 20:00 98.3 F 69 17 138/78 98 04/28/21 15:23 83 134/88 99 04/28/21 15:08 78 125/81 99 04/28/21 14:53 80 131/84 97 04/28/21 14:38 79 133/77 100 04/28/21 14:24 79 139/65 99 04/28/21 14:08 85 130/77 96 04/28/21 14:00 96.2 F L 74 16 131/83 98 04/28/21 13:15 73 16 132/64 97 04/28/21 13:00 75 16 136/65 98 04/28/21 12:45 73 16 145/78 99 Intake and Output 04/28/21 04/29/21 04/29/21 22:59 06:59 14:59 Other: # Voids 1 1 Head normocephalic Neck supple Lungs clear to auscultation bilaterally no wheezing or crackles Heart regular rate and rhythm S1-S2, no rub or gallop Abdomen is soft nontender nondistended positive bowel sounds no hepatosplenomegaly Extremities no edema. Right knee dressing is clean dry and intact Neuro alert and orientated to 3 Results CBC & Chem 7: 04/29/21 08:09 Labs: Abnormal Lab Results - Last 24 Hours (Table) 04/29/21 Range/Units 08:09 WBC 10.65 H (4.50-10.00) X 10*3/uL RBC 3.67 L (4.10-5.20) X 10*6/uL Hgb 10.7 L (12.0-15.0) g/dL Hct 32.8 L (37.2-46.3) % MPV 9.4 L (9.5-12.2) fL Immature Gran # 0.10 H (0.00-0.04) X 10*3/uL Neutrophils # 8.68 H (1.80-7.70) X 10*3/uL Lymphocytes # 0.81 L (0.90-5.00) X 10*3/uL Eosinophils # 0.03 L (0.04-0.35) X 10*3/uL Assessment and Plan Assessment: 1. Right knee osteoporosis status post arthroplasty with Dr. Lyn postop day 1. Maintained on eliquis for DVT prophylaxis and [place] for pain control 2. History of UTI. Concerns of ongoing infection urine culture is currently pending. Will give 1 dose of IV Rocephin patient to follow-up with PCP for urine culture finalization 3. History of hyperlipidemia 4. History of essential hypertension 5. History of hypothyroidism thank you for this consultation we will continue to follow patient closely thr oughout stay
== END 2021-04-29 13:05 | disposition home health service (06) ==
LOC: OR 08:43 → 4SSUR 12:01 → OR 04-29 13:05
PROVIDERS: ATTEND Orthopaedic Surgery
DX: M17.11 Unilateral primary osteoarthritis, right knee (principal); Z20.822 Contact with and (suspected) exposure to COVID-19; E03.9 Hypothyroidism, unspecified; Z88.0 Allergy status to penicillin; I10 Essential (primary) hypertension; E78.5 Hyperlipidemia, unspecified; Z79.899 Other long term (current) drug therapy; Z79.82 Long term (current) use of aspirin; F32.9 Major depressive disorder, single episode, unspecified
CPT/HCPCS: 97161; 64999; 64448; 76942; 80053; 85025; 88300; 87635; 73560; 27447; C1713 ×2; C1776; J2250; J3370; J2405; J3010; J2795 ×2; J2370; J2704

== ENCOUNTER → 2021-05-06 | Outpatient (CLI) | payer MEDICAID ==
--- NOTE | 2021-05-06 15:22 | US ---
EXAMINATION TYPE: US venous doppler duplex LE RT DATE OF EXAM: 05/06/2021 3:10 PM COMPARISON: NONE CLINICAL HISTORY: R22.41 SWELLING RT LOWER LIMB. Right knee replacement 1 week ago, right leg swellin g x 1 week, patient on blood thinners SIDE PERFORMED: Right TECHNIQUE: The lower extremity deep venous system is examined utilizing real time linear array sonog herminia with graded compression, doppler sonography and color-flow sonography. VESSELS IMAGED: Common Femoral Vein Deep Femoral Vein Greater Saphenous Vein * Femoral Vein Popliteal Vein Small Saphenous Vein * Proximal Calf Veins (* superficial vessels) Right Leg: Appears negative for DVT IMPRESSION: No evidence of DVT right lower extremity.
== END | disposition home or self-care (01) ==
LOC: RADUSWWP 14:44
PROVIDERS: ATTEND Internal Medicine
DX: R22.41 Localized swelling, mass and lump, right lower limb (principal); Z96.651 Presence of right artificial knee joint

== ENCOUNTER → 2022-01-27 | Outpatient (CLI) | payer MEDICAID ==
--- NOTE | 2022-01-27 10:57 | BD ---
EXAMINATION TYPE: Axial Bone Density DATE OF EXAM: 01/27/2022 COMPARISON: NONE CLINICAL HISTORY: 61 years year old Female. ICD-10 CODE: Z78.0 POST MENOPAUSAL WITHOUT HRT Height: 5 FT 4 1/4 IN Weight: 208 FRAX RISK QUESTIONS: Alcohol (3 or more units per day): NO Family History (Parent hip fracture): NO Glucocorticoids (More than 3mos): NO (Ex: prednisone, prednisolone, methylprednisolone, dexamethasone, and hydrocortisone). History of Fracture in Adulthood: NO Secondary Osteoporosis: 1. Type 1 Diabetes: NO 2. Hyperthyroidism: NO 3. Menopause before 45: YES 4. Malnutrition: NO 5. Chronic liver disease: NO Rheumatoid Arthritis: NO Current Tobacco Use: NO RISK FACTORS HISTORY OF: Surgery to Spine/Hip(right/left)/Wrist (right/left): NO Family History of Osteoporosis: YES Active: YES Diet low in dairy products/other sources of calcium: NO Postmenopausal woman: YES Take estrogen and/or progesterone medications: FROM AGE 35 -54 NONE NOW Lost more than 2 inches in height since high school: NO Frequent falls: NO Poor Health: GOOD Hyperparathyroidism: NO Adrenal Insufficiency: NO MEDICATIONS: Thyroid Medications: YES Which medication: SYNTHROID How Long: SINCE HER TEENS Additional Medications: SYNTHROID,LOSARTAN, FUROSEMIDE, POTASSIUM, PRAMIPEXOLE,D3, GABAPENTIN Additional History: EXAM MEASUREMENTS: Bone mineral densitometry was performed using the OneFold System. Bone mineral density as measured about the Lumbar spine is: ----- L1-L4(G/cm2): 1.169 T Score Values are as follows: ----- L1: -1.7 ----- L2: -0.7 ----- L3: -0.2 ----- L4: 1.3 ----- L1-L4: -0.1 BASELINE Bone mineral density about the R hip (g/cm2): 0.991 Bone mineral density about the L hip (g/cm2): 1.029 T Score values are as follows: -----R Neck: -0.3 -----L Neck: -0.1 -----R Total: -0.3 -----L Total: 0.8 BASELINE FRAX%s: The graph provided illustrates a 5.8 % chance for a major osteoporotic fx and a 0.2 % chance for the hips probability for fx in 10 years time. IMPRESSION: No evidence for osteoporosis or osteopenia at this time. NOTE: T-SCORE=SD OF THE YOUNG ADULT MEAN.
--- NOTE | 2022-01-28 11:08 | MM ---
Reason for Exam: Screening (asymptomatic). Last mammogram was performed 1 year(s) and 1 month(s) ago. Patient History: Menarche at age 14. First Full-Term at age 24. Left ovary removed at age 40. Right ovary removed at age 40. Hysterectomy at age 34. Postmenopausal. Estrogen for 10 years from age 41 until age 54. Risk Values: Opal 5 year model risk: 1.2%. NCI Lifetime model risk: 6.7%. Prior Study Comparison: 03/27/2018 Bilateral Screening Mammogram, [facility]. 05/07/2019 Bilateral Screening Mammogram, [facility]. 12/22/2020 Bilateral Screening Mammogram, [facility]. Tissue Density: There are scattered fibroglandular densities. Findings: Analyzed By CAD. There is no suspicious group of microcalcifications or new suspicious mass in either breast. Overall Assessment: Negative, BI-RAD 1 Management: Screening Mammogram of both breasts in 1 year. A clinical breast exam by your physician is recommended on an annual basis and results should be correlated with mammographic findings. Electronically signed and approved by: Anil Bryant M.D. Radiologis
== END | disposition home or self-care (01) ==
LOC: RADMAMWWP 09:29
PROVIDERS: ATTEND Internal Medicine
DX: Z12.31 Encounter for screening mammogram for malignant neoplasm of breast (principal); Z78.0 Asymptomatic menopausal state
CPT/HCPCS: 77063; 77067; 77080

== ENCOUNTER → 2023-06-28 | Outpatient (CLI) | payer MEDICAID ==
--- NOTE | 2023-06-28 10:17 | MM ---
Reason for Exam: Screening (asymptomatic). Last mammogram was performed 1 year(s) and 5 month(s) ago. Patient History: Menarche at age 14. First Full-Term at age 24. Left ovary removed at age 40. Right ovary removed at age 40. Hysterectomy at age 34. Postmenopausal. Estrogen for 10 years from age 41 until age 54. Risk Values: Opal 5 year model risk: 1.3%. NCI Lifetime model risk: 6.6%. Prior Study Comparison: 05/07/2019 Bilateral Screening Mammogram, [facility]. 12/22/2020 Bilateral Screening Mammogram, [facility]. 01/27/2022 Bilateral MG 3D screening mammo w/cad, [facility]. Tissue Density: The breast tissue is almost entirely fat. Findings: Analyzed By CAD. There is no suspicious group of microcalcifications or new suspicious mass. Overall Assessment: Negative, BI-RAD 1 Management: Screening Mammogram of both breasts in [address] [facility] will attempt to contact patient to return for supplemental views and ultrasound if indicated. Patient should continue monthly self-breast exams. A clinical breast exam by your physician is recommended on an annual basis. This exam should not preclude additional follow-up of suspicious palpable abnormalities. Note on Opal scores and lifetime risk: 1. A Opal score greater than 3% is considered moderate risk. If this is the case, consider specialist referral to assess eligibility for a risk reducing agent. 2. If overall lifetime risk for the development of breast cancer is 20% or higher, the patient may qualify for future screening with alternating mammogram and breast MRI. Electronically signed and approved by: Chris Newman DO
== END | disposition home or self-care (01) ==
LOC: RADMAMWWP 07:07
PROVIDERS: ATTEND Internal Medicine
DX: Z12.31 Encounter for screening mammogram for malignant neoplasm of breast (principal); Z78.0 Asymptomatic menopausal state
CPT/HCPCS: 77063; 77067

== ENCOUNTER 2024-05-03 07:13 | Emergency (ER) | payer MEDICAID ==
--- NOTE | 2024-05-03 07:49 | ED ---
General Adult HPI - General Chief complaint: Upper Respiratory Infection Stated complaint: HERI, chest pain, cough Time Seen by Provider: 05/03/24 07:23 Source: patient, RN notes reviewed Mode of arrival: ambulatory Limitations: no limitations - History of Present Illness Initial comments: 63 year old female presents to the emergency department with chief complaint of shortness of breath and cough beginning Tuesday. has recently been ill so she decided to take a COVID-19 test x2, both of which were negative. Since Tuesday she has been positive for malaise, fever, chest pain, confusion, productive cough with white sputum, and shortness of breath for which expectorants have not relieved. She reports a history of heart valve regurgitation and stenosis of unknown valves and is taking Eliquis. - Related Data Home Medications Medication Instructions Recorded Confirmed Aspirin 81 mg PO DAILY 11/24/16 04/28/21 Levothyroxine Sodium [Synthroid] 88 mcg PO DAILY 11/24/16 04/28/21 Cholecalciferol [Vitamin D3 (25 50 mcg PO DAILY 11/28/20 04/28/21 Mcg = 1000 Iu)] Furosemide [Lasix] 40 mg PO DAILY 11/28/20 04/28/21 Gabapentin [Neurontin] 300 mg PO QID 11/28/20 04/28/21 Losartan [Cozaar] 50 mg PO DAILY 11/28/20 04/28/21 Potassium Chloride [Klor-Con M10] 10 meq PO DAILY 11/28/20 04/28/21 Cyclobenzaprine [Flexeril] 10 mg PO HS 04/21/21 04/28/21 Previous Rx's Medication Instructions Recorded Apixaban [Eliquis] 2.5 mg PO BID #60 tab 04/29/21 Docusate [Colace] 100 mg PO DAILY #30 cap 04/29/21 HYDROcodone/APAP 7.5-325MG [[place] 1 - 2 each PO Q6HR PRN #42 tab 04/29/21 7.5] Azithromycin [Zithromax Z Pack] 0 tab PO DIRECTED #6 tab 05/03/24 Allergies Allergy/AdvReac Type Severity Reaction Status Date / Time Penicillins Allergy Anaphylaxis Verified 05/03/24 07:24 prednisone Allergy Anaphylaxis Verified 05/03/24 07:24 citris fruit Allergy Anaphylaxis Uncoded 09/14/21 15:51 Review of Systems ROS Statement: Those systems with pertinent positive or pertinent negative responses have been documented in the HPI. ROS Other: All systems not noted in ROS Statement are negative. Past Medical History Past Medical History: Hyperlipidemia, Hypertension, Osteoarthritis (OA), Thyroid Disorder Additional Past Medical History / Comment(s): heart murmur, leaky heart valve,involuntary muscle movement meer legs, swelling mere legs (rt leg worse),pulmonary stenosis History of Any Multi-Drug Resistant Organisms: None Reported Past Surgical History: Appendectomy, Section, Cholecystectomy, Heart Catheterization, Hysterectomy Past Anesthesia/Blood Transfusion Reactions: No Reported Reaction, Motion Sickness Past Psychological History: Anxiety Smoking Status: Never smoker Past Alcohol Use History: Occasional Past Drug Use History: None Reported General Exam Limitations: no limitations General appearance: alert, in no apparent distress Head exam: Present: atraumatic, normocephalic, normal inspection Eye exam: Present: normal appearance, PERRL, EOMI. Absent: scleral icterus, co njunctival injection, periorbital swelling ENT exam: Present: normal exam, mucous membranes moist Neck exam: Present: normal inspection. Absent: tenderness, meningismus, lymphadenopathy Respiratory exam: Present: normal lung sounds bilaterally. Absent: respiratory distress, wheezes, rales, rhonchi, stridor Expanded Location: Wheezes: Right, Left, Upper, Lower, Rhonchi: Left, Upper, Decreased Breath Sounds: Right, Left, Lower, dullness to percussion: Right Cardiovascular Exam: Present: regular rate, normal rhythm, normal heart sounds. Absent: systolic murmur, diastolic murmur, rubs, gallop, clicks GI/Abdominal exam: Present: soft, normal bowel sounds. Absent: distended, tenderness, guarding, rebound, rigid Extremities exam: Present: normal inspection, full ROM, normal capillary refill. Absent: tenderness, pedal edema, joint swelling, calf tenderness Back exam: Present: normal inspection Neurological exam: Present: alert, oriented X3, CN II-XII intact Psychiatric exam: Present: normal affect, normal mood Skin exam: Present: warm, dry, intact, normal color. Absent: rash Course Vital Signs 05/03/24 05/03/24 05/03/24 07:21 07:59 08:30 Temperature 97.2 F L Pulse Rate 91 78 Respiratory 18 18 16 Rate Blood Pressure 136/77 109/64 O2 Sat by Pulse 94 L 93 L Oximetry 05/03/24 05/03/24 05/03/24 09:00 09:16 09:32 Temperature 98 F Pulse Rate 81 75 76 Respiratory 18 Rate Blood Pressure 116/75 O2 Sat by Pulse 95 Oximetry 05/03/24 09:43 Temperature 98 F Pulse Rate 74 Respiratory 18 Rate Blood Pressure 112/76 O2 Sat by Pulse 95 Oximetry EKG Findings - EKG Comments: EKG Findings:: EKG performed at 7: 31 sinus rhythm with a rate of 80 [place] 169 QRS 105 QT/QTc 401/437 - EKG Results: EKG: interpreted by KATELYN Medical Decision Making - Medical Decision Making Was pt. sent in by a medical professional or institution (, PA, HARD TILE SETTER, urgent care, hospital, or fci...) When possible be specific @ -No Did you speak to anyone other than the patient for history (EMS, parent, family, police, friend...)? What history was obtained from this source @ -No Did you review nursing and triage notes (agree or disagree)? Why? @ -I reviewed and agree with nursing and triage notes Were old charts reviewed (outside hosp., previous admission, EMS record, old EKG, old radiological studies, urgent care reports/EKG's, fci records)? Report findings @ -No old charts were reviewed Differential Diagnosis (chest pain, altered mental status, abdominal pain women, abdominal pain men, vaginal bleeding, weakness, fever, dyspnea, syncope, headache, dizziness, GI bleed, back pain, seizure, CVA, palpatations, mental health, musculoskeletal)? @ -Differential Dyspnea: Coronary syndrome, arrhythmia, tamponade, asthma, COPD, pulmonary embolism, pneumonia, pneumothorax, pulmonary effusion, anaphylaxis, diabetic ketoacidosis, flailed chest, pulmonary contusion, diaphragmatic rupture, anemia, neuromuscular, this is not meant to be an all-inclusive list. EKG interpreted by me (3pts min.). @ -As above X-rays interpreted by me (1pt min.). @ -[Chest x-ray shows right lower lobe pneumonia CT interpreted by me (1pt min.). @ -CT angio chest shows no evidence of PE, right pneumonia U/S interpreted by me (1pt. min.). @ -None done What testing was considered but not performed or refused? (CT, X-rays, U/S, labs)? Why? @ -None What meds were considered but not given or refused? Why? @ -None Did you discuss the management of the patient with other professionals (professionals i.e. , PA, HARD TILE SETTER, lab, RT, psych nurse, social work assistant, surgery aid, teacher, banking services officer, case resource manager)? Give summary @ -No Was smoking cessation discussed for >3mins.? @ -No Was critical care preformed (if so, how long)? @ -No Were there social determinants of health that impacted care today? How? (Homelessness, low income, unemployed, alcoholism, drug addiction, transportation, low edu. Level, literacy, decrease access to med. care, assisted, re hab)? @ -No Was there de-escalation of care discussed even if they declined (Discuss DNR or withdrawal of care, Hospice)? DNR status @ -No What co-morbidities impacted this encounter? (DM, HTN, Smoking, COPD, CAD, Cancer, CVA, ARF, Chemo, Hep., AIDS, mental health diagnosis, sleep apnea, morbid obesity)? @ -None Was patient admitted / discharged? Hospital course, mention meds given and route, prescriptions, significant lab abnormalities, going to OR and other pertinent info. @ -Discharge patient feels greatly improved this time, Rocephin given patient discharged with azithromycin and close follow-up. Undiagnosed new problem with uncertain prognosis? @ -No Drug Therapy requiring intensive monitoring for toxicity (Heparin, Nitro, Insulin, Cardizem)? @ -No Were any procedures done? @ -No Diagnosis/symptom? @ -Pneumonia Acute, or Chronic, or Acute on Chronic? @ -Acute Uncomplicated (without systemic symptoms) or Complicated (systemic symptoms)? @ -Complicated Side effects of treatment? @ -No Exacerbation, Progression, or Severe Exacerbation? @ -No Poses a threat to life or bodily function? How? (Chest pain, [place], [place], pneumonia, PE, COPD, DKA, ARF, appy, cholecystitis, CVA, Diverticulitis, Homicidal, Suicidal, threat to staff... and all critical care pts) @ -Yes low risk pneumonia, respiratory failure - Lab Data Result diagrams: 05/03/24 07:50 05/03/24 07:50 Lab Results 0905/03/24 05/03/24 Range/Units 07:50 07:50 07:50 WBC 6.7 (3.8-10.6) k/uL RBC 4.17 (3.80-5.40) m/uL Hgb 12.2 (11.4-16.0) gm/dL Hct 36.7 (34.0-46.0) % MCV 88.0 (80.0-100.0) fL MCH 29.2 (25.0-35.0) pg MCHC 33.2 (31.0-37.0) g/dL RDW 12.4 (11.5-15.5) % Plt Count 181 (150-450) k/uL MPV 7.5 Neutrophils % 79 % Lymphocytes % 10 % Monocytes % 8 % Eosinophils % 0 % Basophils % 0 % Neutrophils # 5.3 (1.3-7.7) k/uL Lymphocytes # 0.7 L (1.0-4.8) k/uL Monocytes # 0.5 (0-1.0) k/uL Eosinophils # 0.0 (0-0.7) k/uL Basophils # 0.0 (0-0.2) k/uL PT 10.6 (10.0-12.5) sec INR 1.0 (<1.2) APTT 26.3 (22.0-30.0) sec D-Dimer 0.69 H (<0.60) mg/L FEU Sodium (137-145) mmol/L Potassium (3.5-5.1) mmol/L Chloride (98-107) mmol/L Carbon Dioxide (22-30) mmol/L Anion Gap mmol/L BUN (7-17) mg/dL Creatinine (0.52-1.04) mg/dL Est GFR (CKD-EPI)AfAm (>60 ml/min/1.73 sqM) Est GFR (CKD-EPI)NonAf (>60 ml/min/1.73 sqM) Glucose (74-99) mg/dL Calcium (8.4-10.2) mg/dL Total Bilirubin (0.2-1.3) mg/dL AST (14-36) U/L ALT (4-34) U/L Alkaline Phosphatase (38-126) U/L Troponin I <0.012 (0.000-0.034) ng/mL Total Protein (6.3-8.2) g/dL Albumin (3.5-5.0) g/dL Influenza Type A (PCR) (Not Detectd) Influenza Type B (PCR) (Not Detectd) RSV (PCR) (Not Detectd) SARS-CoV-2 (PCR) (Not Detectd) 05/03/24 05/03/24 Range/Units 07:50 07:55 WBC (3.8-10.6) k/uL RBC (3.80-5.40) m/uL Hgb (11.4-16.0) gm/dL Hct (34.0-46.0) % MCV (80.0-100.0) fL MCH (25.0-35.0) pg MCHC (31.0-37.0) g/dL RDW (11.5-15.5) % Plt Count (150-450) k/uL MPV Neutrophils % % Lymphocytes % % Monocytes % % Eosinophils % % Basophils % % Neutrophils # (1.3-7.7) k/uL Lymphocytes # (1.0-4.8) k/uL Monocytes # (0-1.0) k/uL Eosinophils # (0-0.7) k/uL Basophils # (0-0.2) k/uL PT (10.0-12.5) sec INR (<1.2) APTT (22.0-30.0) sec D-Dimer (<0.60) mg/L FEU Sodium 136 L (137-145) mmol/L Potassium 3.8 (3.5-5.1) mmol/L Chloride 101 (98-107) mmol/L Carbon Dioxide 26 (22-30) mmol/L Anion Gap 9 mmol/L BUN 14 (7-17) mg/dL Creatinine 0.75 (0.52-1.04) mg/dL Est GFR (CKD-EPI)AfAm >90 (>60 ml/min/1.73 sqM) Est GFR (CKD-EPI)NonAf 86 (>60 ml/min/1.73 sqM) Glucose 112 H (74-99) mg/dL Calcium 8.9 (8.4-10.2) mg/dL Total Bilirubin 1.0 (0.2-1.3) mg/dL AST 41 H (14-36) U/L ALT 20 (4-34) U/L Alkaline Phosphatase 64 (38-126) U/L Troponin I (0.000-0.034) ng/mL Total Protein 7.2 (6.3-8.2) g/dL Albumin 4.3 (3.5-5.0) g/dL Influenza Type A (PCR) Not Detected (Not Detectd) Influenza Type B (PCR) Not Detected (Not Detectd) RSV (PCR) Not Detected (Not Detectd) SARS-CoV-2 (PCR) Not Detected (Not Detectd) Disposition Clinical Impression: Pneumonia Disposition: HOME SELF-CARE Condition: Good Additional Instructions: Please return to the Emergency Department if symptoms worsen or any other concerns. Prescriptions: Azithromycin [Zithromax Z Pack] 0 tab PO DIRECTED #6 tab Is patient prescribed a controlled substance at d/c from ED?: No When asked, does pt state using other controlled substances?: No If prescribed controlled substance>3 days was MAPS reviewed?: No Referrals: Yelitza English MD [Primary Care Provider] - 1-2 days
[2024-05-03 08:05] LABS: Basophils % (A) 0 %; Eosinophils % (A) 0 %; HCT 36.7 % (34.0-46.0); HGB 12.2 gm/dL (11.4-16.0); Lymphocytes # (A) 0.7 k/uL (1.0-4.8); Lymphocytes % (A) 10 %; MCH 29.2 pg (25.0-35.0); MCHC 33.2 g/dL (31.0-37.0); Mean Platelet Volume 7.5; Monocytes # (A) 0.5 k/uL (0-1.0); Monocytes % (A) 8 %; Neutrophils # (A) 5.3 k/uL (1.3-7.7); Neutrophils % (A) 79 %; Platelet Count 181 k/uL (150-450); RBC 4.17 m/uL (3.80-5.40); RDW 12.4 % (11.5-15.5); WBC 6.7 k/uL (3.8-10.6)
[2024-05-03 08:16] LABS: Partial Thromboplastin Time 26.3 sec (22.0-30.0); Prothrombin Time 10.6 sec (10.0-12.5)
[2024-05-03 08:21] LABS: ALT 20 U/L (4-34); AST 41 U/L (14-36); African American GFR (CKD) >90 (>60 ml/min/1.73 sqM); Albumin 4.3 g/dL (3.5-5.0); Alkaline Phosphatase 64 U/L (38-126); Anion Gap 9 mmol/L; Blood Urea Nitrogen 14 mg/dL (7-17); Calcium 8.9 mg/dL (8.4-10.2); Carbon Dioxide 26 mmol/L (22-30); Chloride 101 mmol/L (98-107); Glucose 112 mg/dL (74-99); Non-African American GFR(CKD) 86 (>60 ml/min/1.73 sqM); Potassium 3.8 mmol/L (3.5-5.1); Sodium 136 mmol/L (137-145); Total Protein 7.2 g/dL (6.3-8.2)
--- NOTE | 2024-05-03 08:26 | XR ---
EXAMINATION TYPE: XR chest 2V DATE RECEIVED ON: 05/03/2024 DATE PERFORMED: 05/03/2024 COMPARISON: 02/28/2018 HISTORY: Shortness of breath chest pain TECHNIQUE: Frontal view of the chest is obtained. FINDINGS: The heart size is normal. The pulmonary vasculature is normal. Some mild linear opacity in the right upper lobe is present, likely on the basis of atelectasis. IMPRESSION: 1. Right upper lobe streak atelectasis versus pneumonia [facility], , 05/03/2024 8:24 AM
[2024-05-03] MEDS: SODIUM CHLORIDE 0.9% 1,000 ML IV ONE (08:29)
[2024-05-03 09:04] VITALS: RESP 18; TEMP 98
--- NOTE | 2024-05-03 09:11 | CT ---
EXAMINATION TYPE: CT chest angio for PE DATE OF EXAM: 05/03/2024 COMPARISON: HISTORY: Chest pain, SOB CT DLP: 396.4 mGycm Automated exposure control for dose reduction was used. CONTRAST: CT Chest for pulmonary embolism performed with without and with IV Contrast, patient injected with 10 0 ml mL of Isovue 370. FINDINGS: LUNGS: Multifocal bilateral groundglass areas of consolidation greater on the right, favor infectious etiology over neoplastic process. No sizable pleural effusion or pneumothorax. MEDIASTINUM: Pulmonary arteries are markedly enlarged suggestive of severe pulmonary arterial hyperte nsion. Measuring up to 6.1 cm. Aneurysmal dilation not excluded. Visualized pulmonary arteries demons trate normal enhancement. Third order and distal branches nondiagnostic due to suboptimal enhancement . Pulmonary embolism in this distribution not excluded. The heart is enlarged. There is a small peric ardial effusion. Aorta of normal caliber with mild calcifications near the aortic valve. Pathologic m ediastinal adenopathy and borderline hilar adenopathy. OTHER: Postcholecystectomy changes. The liver appears low in attenuation correlate for underlying he patic steatosis. Hypertrophic and degenerative changes of the spine. IMPRESSION: 1. Multifocal groundglass infiltrates radius within the right lung. Would favor an infectious pneumon itis over a neoplastic process. Follow-up to resolution recommended. 2. Limited assessment for pulmonary embolism with no central pulmonary embolism. Third order and dist al branches limited. There is severe dilation of the pulmonary artery especially the main trunk measu ring up to 6.1 cm. This may be on the basis of severe pulmonary arterial hypertension. Aneurysmal dil ation or not excluded. 3. Pathologic mediastinal and borderline hilar adenopathy. Follow-up recommendations for incidental pulmonary nodules are per [employer] or [employer]. [facility], , 05/03/2024 9:09 AM
[2024-05-03] MEDS: IPRATROPIUM-ALBUTEROL 3 ML NEB INHALATION STA (09:14)
[2024-05-03] MEDS: cefTRIAXone IN SWFI 1,000 MG/10 ML SYRINGE IVP STA (09:26)
[2024-05-03 09:45] VITALS: BP 112/76; PULSE 74
== END 2024-05-03 09:43 | disposition home or self-care (01) ==
LOC: EC 07:13
CPT/HCPCS: 36415; 71046; 71275; 80053; 84484; 85025; 85379; 85610; 85730; 87636; 93005; 94640; 96361; 96374; 99285

== ENCOUNTER → 2024-05-10 | Outpatient (CLI) | payer MEDICAID ==
--- NOTE | 2024-05-10 23:50 | CT ---
EXAMINATION TYPE: CT chest w con CT DLP: 451.8 mGycm, Automated exposure control for dose reduction was used. DATE OF EXAM: 05/10/2024 4:49 PM COMPARISON: CT 05/03/2024 CLINICAL INDICATION: Female, 63 years old with history of R06.02 SHORTNESS OF BREATH, HERI TECHNIQUE: Multiple axial images were obtained through the chest. Sagittal and coronal reformats were created for review. MIP was performed on a separate workstation. Contrast used:100ml mL of Isovue 370 with IV Contrast (None if empty) Oral contrast used: (None if empty) FINDINGS: LUNGS/ PLEURA: Improvement of marked multifocal airspace opacities with minimal pulmonary edema. No f ocal consolidation, pneumothorax or pleural effusion. AIRWAY: Patent and unremarkable. HEART: The heart is mildly enlarged for size. MEDIASTINUM: Stable prominent lymph nodes throughout the mediastinum example includes right low parat lina measuring up to 9 mm in short axis previously 9 mm. VASCULATURE: No aortic aneurysm. Pulmonary arterial trunk measures up to 61 mm. No evidence for fill ing defect to suggest pulmonary embolus. MUSCULOSKELETAL: No acute osseous abnormalities SOFT TISSUES/LYMPH NODES: Unremarkable. LOWER NECK: No significant findings. UPPER ABDOMEN: Gallbladder surgically absent. IMPRESSION: 1. Improvement of multifocal groundglass opacities with minimal pulmonary edema . No evidence for ac oliverio heart failure. 2. Stable mediastinal nodes. 3. Cardiomegaly with pulmonary hypertension. [facility], , 05/10/2024 11:48 PM
== END | disposition home or self-care (01) ==
LOC: RADCTMAIN 15:34
PROVIDERS: ATTEND Internal Medicine
DX: I27.20 Pulmonary hypertension, unspecified (principal); J98.11 Atelectasis; R91.8 Other nonspecific abnormal finding of lung field
CPT/HCPCS: 71260; Q9967